=== PATIENT | male | born 1995 | race Caucasian/White ===

== ENCOUNTER 2016-07-08 08:23 | Outpatient (RCR) | payer BC ==
--- OUTSIDE RECORDS SUMMARY | 2016-05-09 08:09 | XMS REPORT | Continuity of Care Document ---
Author Author Interface Organization Interface Address Unknown Phone Unavailable Problems Problem Status Onset Date Classification Date Reported Comments Source Concussion (disorder) Active Problem 04/22/2016 [place] Hodgkin lymphoma, nodular lymphocyte predominance (disorder) Active Problem 04/22/2016 [facility] [address] Alexandre/ eduarda radiation c Dr Johnson [place]. Premature infant (finding) Active Problem 04/22/2016 former 28 wk, wt 3# 2oz , and had PDA closure; and NEC w / resection [place]. Tendinitis of knee (disorder) Active Problem 04/22/2016 [place]. Varicella-zoster virus infection (disorder) Active 12/05/2003 Problem 04/22/2016 [place]. Concussion (disorder) Active Problem 03/03/2016 2.16.840.1.905505.3.1367.06 Hodgkin lymphoma, nodular lymphocyte predominance (disorder) Active Problem 03/03/2016 [facility] [address] Alexandre/ eduarda radiation c Dr Johnson 2.16.840.1.004272.3.1367.06 Premature infant (finding) Active Problem 03/03/2016 former 28 wk, wt 3# 2oz , and had PDA closure; and NEC w / resection 2.16.840.1.255245.3.1367.06 Tendinitis of knee (disorder) Active Problem 03/03/2016 2.16.840.1.297488.3.1367.06 Varicella-zoster virus infection (disorder) Active 12/05/2003 Problem 03/03/2016 2.16.840.1.907676.3.1367.06 Concussion (disorder) Active Problem 02/13/2015 2.16.840.1.369798.3.1367.28 Hodgkin lymphoma, nodular lymphocyte predominance (disorder) Active Problem 02/13/2015 [facility] [address] Alexandre/ prob radiation c Dr Johnson 2.16.840.1.316477.3.1367.28 Premature infant (finding) Active Problem 02/13/2015 former 28 wk, wt 3# 2oz , and had PDA closure; and NEC w / resection 2.16.840.1.695727.3.1367.28 Tendinitis of knee (disorder) Active Problem 02/13/2015 2.16.840.1.010584.3.1367.28 Varicella-zoster virus infection (disorder) Active 12/05/2003 Problem 02/13/2015 2.16.840.1.095217.3.1367.28 Hodgkin's disease (disorder) Active Problem 08/13/2014 [place]. Concussion (disorder) Active Problem 08/06/2014 2.16.840.1.434603.3.1367.17 Hodgkin's disease (disorder) Active Problem 08/06/2014 2.16.840.1.840449.3.1367.17 Premature (finding) Active Problem 08/06/2014 former 28 wk, wt 3# 2oz , and had PDA closure; and NEC w / resection 2.16.840.1.326687.3.1367.17 Tendinitis of knee (disorder) Active Problem 08/06/2014 2.16.840.1.704922.3.1367.17 Varicella-zoster virus infection (disorder) Active 12/05/2003 Problem 08/06/2014 2.16.840.1.726455.3.1367.17 Other synovitis and tenosynovitis 12/05/2013 Diagnosis 2.16.840.1.357119.3.1367.06 Concussion, unspecified 12/2013 Diagnosis 12/09/2013 2.16.840.1.132447.3.1367.06 Routine or child health check 12/05/2013 Diagnosis 12/09/2013 2.16.840.1.610709.3.1367.06 Need for prophylactic vaccination and inoculation against viral hepatitis 12/05/2013 Diagnosis 12/09/2013 2.16.840.1.809450.3.1367.06 Need for other specified vaccination against single bacterial disease 12/05/2013 Diagnosis 12/09/2013 2.16.840.1.918401.3.1367.06 Acute pharyngitis 2014 Diagnosis 04/07/2015 2.16.840.1.451904.3.1367.06 Hodgkin's disease, lymphocytic-histiocytic predominance involving lymph nodes of head, face, and neck Diagnosis 02/15/2015 [employer] [facility]. 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 Enlargement of lymph nodes 07/05/2014 Diagnosis 2013 [employer] [facility]. Esophageal reflux 2013 Diagnosis 04/09/2014 2.16.840.1.105267.3.1367.06 Peptic ulcer of unspecified site, unspecified as acute or chronic, without mention of hemorrhage or perforation, without mention of obstruction 04/05/2014 Diagnosis 04/09/2014 2.16.840.1.114547.3.1367.06 Lymphadenitis, unspecified, except mesenteric 04/05/2014 Diagnosis 04/09/2014 2.16.840.1.770267.3.1367.06 Pain in thoracic spine 04/05 Diagnosis 04/09/2014 2.16.840.1.256999.3.1367.06 Pain in joint involving lower leg 11/16/2013 Diagnosis [facility] Medications Medication Details Route Status Patient Instructions Ordering Provider Order Date Source No Known Medications No known medications Active 2.16.840.1.343265.3.1367.06 Allergies, Adverse Reactions, Alerts Substance Category Reaction Severity Reaction type Status Date Reported Comments Source NKA Assertion Drug allergy [facility] NKA drug allergy Allergy Active [facility], [facility]. NKA Assertion Drug allergy 2.16.840.1.326733.3.1367.06 NKA drug allergy Allergy Active [facility] Immunizations Immunization Date Given Site Status Last Updated Comments Source No data available for this section No data available for this section [employer], [facility]. Hep A, ped/adol, 2 dose 12/05/2013 Left Deltoid hepatitis A pediatric vaccine [facility] 2.16.840.1.391845.3.1367.06 meningococcal MCV4P 12/05/2013 Right Deltoid meningococcal conjugate vaccine [facility] 2.16.840.1.095094.3.1367.06 Influenza, seasonal, injectable 06/29/2013 Right Deltoid influenza virus vaccine [facility] 2.16.840.1.977770.3.1367.06 Hep A, ped/adol, 2 dose 09/09/2012 Left Deltoid hepatitis A pediatric vaccine [facility] 2.16840.1.407481.3.1367.06 Influenza, seasonal, injectable 05/19/2012 Left Deltoid influenza virus vaccine [place] 2.16.840.1.293557.3.1367.06 influenza virus vaccine 07/26/2014 influenza virus vaccine<sup>1</sup> [place] Location History: [facility] 2.16840.1.494724.3.1367.06 meningococcal conjugate vaccine 03/12/2009 meningococcal conjugate vaccine [facility] 2.16.840.1.403995.3.1367.06 hepatitis B pediatric vaccine 02/02/1997 hepatitis B pediatric/adolescent vaccine [facility] 2.16840.1.188024.3.1367.06 hepatitis B pediatric vaccine 1996 hepatitis B pediatric/adolescent vaccine [place] 2.16840.1.890124.3.1367.06 measles/mumps/rubella virus vaccine 03/02/2002 measles/mumps/rubella virus vaccine [place] 2.16840.1.044101.3.1367.06 measles/mumps/rubella virus vaccine 09/21/1997 measles/mumps/rubella virus vaccine [facility] 2.16.840.1.166123.3.1367.06 poliovirus vaccine, inactivated 03/29/2002 poliovirus vaccine, inactivated [place] 2.16.840.1.611782.3.1367.06 poliovirus vaccine, inactivated 1996 poliovirus vaccine, inactivated [place] 2.16.840.1.323334.3.1367.06 poliovirus vaccine, inactivated 1996 poliovirus vaccine, inactivated [place] 2.16.840.1.363217.3.1367.06 diphtheria/pertussis, acel/tetanus pediatric 1996 diphtheria/pertussis, acel/tetanus pedia [facility] 2.16.840.1.027829.3.1367.06 haemophilus b conjugate (PRP-T) vaccine 06/16/1997 haemophilus b conjugate (PRP-T ) vaccine [place] 2.16.840.1.052431.3.1367.06 poliovirus vaccine, inactivated 06/16/1997 poliovirus vaccine, inactivated [place] 2.16.840.1.522214.3.1367.06 hepatitis B pediatric vaccine 1996 hepatitis B pediatric/adolescent vaccine [facility] 2.16.840.1.640060.3.1367.06 diphtheria/pertussis, acel/tetanus pediatric 1996 diphtheria/pertussis, acel/tetanus pedia [facility] 2.16.840.1.865399.3.1367.06 haemophilus b conjugate (PRP-T) vaccine 1996 haemophilus b conjugate (PRP-T ) vaccine [facility] 2.16.840.1.195415.3.1367.06 diphtheria/pertussis, acel/tetanus pediatric 2006 diphtheria/pertussis, acel/tetanus pedia [facility] 2.16.840.1.986768.3.1367.06 haemophilus b conjugate (PRP-T) vaccine 08/31/2006 haemophilus b conjugate (PRP-T ) vaccine [facility] 2.16.840.1.750086.3.1367.06 diphtheria/pertussis, acel/tetanus pediatric 1995 diphtheria/pertussis, acel/tetanus pedia [facility] 2.16.840.1.599612.3.1367.06 haemophilus b conjugate (PRP-T) vaccine 1996 haemophilus b conjugate (PRP-T ) vaccine [facility] 2.16.840.1.643395.3.1367.06 diphtheria-tetanus toxoids 03/01/2008 diphtheria-tetanus toxoids [facility] 2.16.840.1.194453.3.1367.06 diphtheria/pertussis, acel/tetanus pediatric 2001 diphtheria/pertussis, acel/tetanus pedia [facility] 2.16.840.1.966777.3.1367.06 tetanus/diphth/pertuss (Tdap) adult/adol 02/04/2011 tetanus/diphth/pertuss (Tdap) adult/adol [facility] 2.16.840.1.008144.3.1367.06 No data available for this section No data available for this section 2.16.840.1.420247.3.1367.06 No data available for this section No data available for this section 2.16.840.1.810721.3.1367.28 No data available for this section No data available for this section 2.16.840.1.745691.3.1367.17 No data available for this section No data available for this section [facility] Hep A, ped/adol, 2 dose 12/05/2013 Left Deltoid hepatitis A [email or web address]. meningococcal MCV4P 12/05/2013 Right Deltoid meningococcal conjugate vaccine [facility] [employer], [facility]. Influenza, seasonal, injectable 06/29/2013 Right Deltoid influenza virus vaccine [email or web address]. Hep A, ped/adol, 2 dose 09/09/2012 Left Deltoid hepatitis A pediatric vaccine [email or web address]. Influenza, seasonal, injectable 05/19/2012 Left Deltoid influenza virus vaccine [email or web address] human papillomavirus vaccine 03/05/2016 human papillomavirus vaccine [facility], [facility]. influenza virus vaccine 07/26/2014 influenza virus vaccine<sup>1</sup> [place] Location History: [facility]. meningococcal conjugate vaccine 03/12/[address] [facility], [facility]. hepatitis B pediatric vaccine 02/02/1997 hepatitis B pediatric/adolescent vaccine [facility], [facility]. hepatitis B pediatric vaccine 1996 hepatitis B pediatric/adolescent vaccine [facility] [place]. measles/mumps/rubella virus vaccine 03/02/2002 measles/mumps/rubella virus vaccine [facility], [facility]. measles/mumps/rubella virus vaccine 09/21/1997 measles/mumps/rubella virus vaccine [facility], [facility]. poliovirus vaccine, inactivated 03/29/2002 poliovirus vaccine, inactivated [facility], [facility]. poliovirus vaccine, inactivated 1996 poliovirus vaccine, inactivated [facility] [place]. poliovirus vaccine, inactivated 1996 poliovirus vaccine, inactivated [facility], [facility]. diphtheria/pertussis, acel/tetanus pediatric 1996 diphtheria/pertussis, acel/tetanus pedia [facility] [place]. haemophilus b conjugate (PRP-T) vaccine 06/16/1997 haemophilus b conjugate (PRP-T ) vaccine [facility], [facility]. poliovirus vaccine, inactivated 06/16/1997 poliovirus vaccine, inactivated [facility] [place]. hepatitis B pediatric vaccine 1996 hepatitis B pediatric/adolescent vaccine [facility] [place]. diphtheria/pertussis, acel/tetanus pediatric 1996 diphtheria/pertussis, acel/tetanus pedia [facility], [facility]. haemophilus b conjugate (PRP-T) vaccine 1996 haemophilus b conjugate (PRP-T ) vaccine [facility], [facility]. diphtheria/pertussis, acel/tetanus pediatric 2006 diphtheria/pertussis, acel/tetanus pedia [facility], [facility]. haemophilus b conjugate (PRP-T) vaccine 08/31/2006 haemophilus b conjugate (PRP-T ) vaccine [facility] [place]. diphtheria/pertussis, acel/tetanus pediatric 1995 diphtheria/pertussis, acel/tetanus pedia [facility] [employer], [employer]. haemophilus b conjugate (PRP-T) vaccine 1996 haemophilus b conjugate (PRP-T ) vaccine [facility] [place]. diphtheria-tetanus toxoids 03/01/2008 diphtheria-tetanus toxoids [facility] [place]. diphtheria/pertussis, acel/tetanus pediatric 2001 diphtheria/pertussis, acel/tetanus pedia [facility] [place]. tetanus/diphth/pertuss (Tdap) adult/adol 02/04/2011 tetanus/diphth/pertuss (Tdap) adult/adol [facility] [place]. Results Order Name Results Value Reference Range Date Interpretation Comments Source Vital Signs Vital Sign Value Date Comments Source Encounters Location Location Details Encounter Type Encounter Number Reason For Visit Attending Provider ADM Date DC Date Status Source [facility] CD:[id number] Clinic ( Outpatient) [id number] Carson Prakash 04/05/2014 Active [employer] [facility] JCO CD:[id number] Clinic ( Outpatient) [id number] Adán Whiteside 11/16/2013 Active [employer] [facility]IMP CD:[id number] Clinic ( Outpatient) [id number] Carson Prakash 12/05/2013 Active [employer] [facility] CPPC CD:[id number] Clinic ( Outpatient) [id number] Marlena Aguayo 06/29/2013 Active [employer] [facility] CSOL CD:[id number] Clinic ( Outpatient) [id number] . [facility] 08/02/2014 [facility] CD:[id number] Clinic ( Outpatient) [id number] Jay Mckoy 01/30/2015 Active [employer] [facility] JCO CD:[id number] Clinic ( Outpatient) [id number] Adán Whiteside 02/09/2015 Active [facility] CD:[id number] Clinic ( Outpatient) [id number] Marlena Aguayo 04/03/2015 Active [facility] CD:[id number] Clinic ( Outpatient) [id number] Marlena Aguayo 04/03/2015 [facility] CD:[id number] Clinic ( Outpatient) [id number] Carson Prakash 03/07/2016 Active [facility] CD:[id number] Amb Surgery [id number] Fabio Mavis 07/05/2014 Active [facility] CD:[id number] CD:[id number] Seferino Baldomero 08/08/2014 08/14/2014 Active [facility]. Oncology [id number] Seferino Baldomero 01/18/2016 01/20/2016 [place]. [facility]. Outpatient [id number] Seferino Baldomero 01/18/2016 01/19/2016 [place]. [employer] Oncology [id number] Seferino Baldomero 10/12/2015 10/14/2015 [place]. [employer]. Outpatient [id number] Seferino Baldomero 10/12/2015 10/13/2015 [place] Cancel/No Show [id number] Carson Prakash 03/07/2016 02/28/2016 2.16.840.1.745390.3.1367.06 [facility] Pavilion [id number] Seferino Baldomero 08/01/2015 08/03/2015 [place]. [employer]. Oncology [id number] Seferino Baldomero 07/30/2015 08/01/2015 [place] [employer]. Outpatient [id number] Seferino Baldomero 04/30/2015 05/01/2015 [place] [employer]. Outpatient [id number] Seferino Baldomero 07/30/2015 07/31/2015 [place] [employer]. Outpatient [id number] Marlena Aguayo 04/03/2015 04/04/2015 [place]. [facility], [facility]. Outpatient [id number] Seferino Baldomero 04/27/2015 04/28/2015 [employer] [facility]. [facility] Clinic [id number] Marlena Aguayo 201404/04/2015 2.16.840.1.468560.3.1367.06 [facility]. Oncology [id number] Laura Johnson 01/29/2015 02/12/2015 [email or web address], [facility]. [facility], [facility]. Oncology [id number] Seferino Baldomero 01/29/2015 02/12/2015 [email or web address], [facility]. [facility] [id number] Adánlisa Whiteside 02/09/2015 02/10/2015 2.16.840.1.817872.3.1367.28 [facility] [id number] Jay Ean 01/31/2015 2.16.840.1.668606.3.1367.06 [facility], [facility]. Outpatient [id number] Seferino Baldomero 01/29/2015 01/29/2015 [employer], [facility]. [employer] [place], [facility]. Outpatient [id number] Seferino Baldomero 10/10/2014 10/11/2014 [email or web address], [facility]. [employer] [place], [facility]. Outpatient [id number] Laura Johnson 12/01/2014 12/02/2014 [email or web address], [facility]. [employer] [place], [facility]. Oncology [id number] Seferino Baldomero 10/11/2014 10/13/2014 [email or web address], [facility]. [employer] [place], [facility]. [facility] [id number] Seferino Baldomero 201409/15/2014 [email or web address], [facility]. [employer] [place], [facility]. Outpatient [id number] Seferino Baldomero 09/11/2014 09/12/2014 [email or web address], [facility]. [employer] [place] Oncology [id number] Seferino Baldomero 08/29/2014 09/01/2014 [email or web address], [facility]. [employer] [place] Outpatient [id number] Seferino Baldomero 10/03/2014 10/04/2014 [email or web address], [facility]. [facility], [facility]. Oncology [id number] Seferino Baldomero 09/20/2014 09/22/2014 [employer] , [facility]. [facility], [facility]. Outpatient [id number] Seferino Baldomero 09/20/2014 09/21/2014 [facility], [facility]. [facility], [facility]. Outpatient [id number] Seferino Baldomero 08/29/2014 08/30/2014 [employer] , [facility]. [facility], [facility]. Oncology [id number] Seferino Baldomero 08/08/2014 08/10/2014 [facility], [facility]. [facility], [facility]. [facility] [id number] Seferino Baldomero 201308/02/2014 [facility], [facility] Cancel/ No Show [id number] . [facility] 08/03/2014 08/02/2014 2.16.840.1.122432.3.1367.17 [facility], [facility]. [facility] [id number] Fabio Mavis 201307/22/2014 [employer] [facility]. [facility], [facility]. Outpatient [id number] Fabio Mavis 07/20/2014 07/21/2014 [facility], [facility]. [facility], [facility]. Ambulatory Surgery [id number] Fabio Roxobel 06/28/2014 07/06/2014 [place] [employer], [facility]. [facility] [id number] Carson Prakash 04/05/2014 04/06/2014 2.16.840.1.455545.3.1367.06 [facility], [facility]. Outpatient [id number] Seferino Baldomero 08/15/2014 08/16/2014 [employer] , [facility]. [facility] Clinic [id number] Adán Whiteside 201311/17/2013 [facility], [facility]. Oncology [id number] Seferino Baldomero 04/30/2015 05/02/2015 [employer] , [facility]. [facility] [id number] Carson Prakash 12/05/2013 12/06/2013 2.16.840.1.037060.3.1367.06 [facility] CD:[id number] Outpatient [id number] Seferino Baldomero 09/20/2014 [facility] CD:[id number] Outpatient [id number] Seferino Baldomero 01/18/2016 [facility] CD:[id number] Outpatient [id number] Seferino Baldomero 08/01/2015 [facility] CD:[id number] Outpatient [id number] Seferino Baldomero 07/30/2015 [employer] [facility] CD:[id number] CD:[id number] Seferino Baldomero 07/30/2015 08/12/2015 [employer] [facility] CD:[id number] Outpatient [id number] Laura Johnson 12/01/2014 12/01/2014 [facility] CD:[id number] CD:[id number] Seferino Baldomero 08/30/2014 09/05/2014 [facility] CD:[id number] Outpatient [id number] Fabio Gamble 06/03/2013 07/02/2013 [facility] CD:[id number] CD:[id number] Seferino Baldomero 04/30/2015 05/02/2015 [facility] CD:[id number] Outpatient [id number] Seferino Baldomero 01/29/2015 [facility] CD:[id number] CD:[id number] Seferino Baldomero 01/29/2015 02/11/2015 [facility] CD:[id number] CD:[id number] Seferino Baldomero 10/11/2014 10/17/2014 [facility] CD:[id number] Outpatient [id number] Seferino Baldomero 08/29/2014 [facility] CD:[id number] CD:[id number] Seferino Baldomero 01/18/2016 01/31/2016 [facility] CD:[id number] Outpatient [id number] Fabio Mavis 05/03/2013 06/02/2013 [facility] CD:[id number] CD:[id number] Laura Johnson 11/07/2014 11/22/2014 [facility] CD:[id number] CD:[id number] Laura Johnson 11/23/2014 01/25/2015 [facility] CD:[id number] Outpatient [id number] Seferino Baldomero 10/03/2014 [facility] CD:[id number] Outpatient [id number] Seferino Baldomero 09/14/2014 [employer] CD:[id number] Outpatient [id number] Fabio Roxobel 07/20/2014 [facility] CD:[id number] Outpatient [id number] Seferino Baldomero 08/01/2014 [facility] CD:[id number] Outpatient [id number] Fabio Roxobel 07/21/2014 [facility] CD:[id number] Outpatient [id number] Seferino Baldomero 04/27/2015 [facility] CD:[id number] Outpatient [id number] Seferino Baldomero 10/10/2014 [facility] CD:[id number] Outpatient [id number] Seferino Baldomero 08/15/2014 [facility] CD:[id number] CD:[id number] Laura Johnson 01/29/2015 02/11/2015 [facility] CD:[id number] Outpatient [id number] Marlena Aguayo 04/03/2015 04/03/2015 [facility] CD:[id number] CD:[id number] Seferino Baldomero 10/12/2015 10/25/2015 [facility] CD:[id number] Outpatient [id number] Seferino Baldomero 04/30/2015 [facility] CD:[id number] CD:[id number] Seferino Baldomero 09/20/2014 09/26/2014 [facility] CD:[id number] Outpatient [id number] Seferino Baldomero 09/11/2014 [facility] CD:[id number] Outpatient [id number] Seferino Baldomero 10/12/2015 [facility] CD:[id number] CD:[id number] Seferino Baldomero 04/17/2016 04/30/2016 [facility] CD:[id number] Outpatient [id number] Seferino Baldomero 04/17/2016 [facility], [employer]. Outpatient [id number] Seferino Baldomero 04/17/2016 04/18/2016 [place] [id number] Seferino Baldomero 04/17/2016 04/19/2016 [employer] [facility] [id number] Carson Prakash 08/01/2015 Active [facility] Procedures Procedure Code Date Perfomer Comments Source No data available for this section [facility]. Lymph node biopsy left deep cervical node biopsy 07/05/2014 [place].
[~2016-07-08 08:23] MED LIST: CYCL10TA9 PO; HYDR-3812 PO
== END 2016-08-07 | disposition home or self-care (01) ==
PROVIDERS: ATTEND Orthopaedic Surgery
DX: M76.52 Patellar tendinitis, left knee (principal)